=== PATIENT | male | born 1965 | race Caucasian/White ===

== ENCOUNTER 2021-03-09 10:47 | Outpatient (CLI) | payer BC ==
[~2021-03-09] VITALS: Ht 188 cm; Wt 108.2 kg
[2021-03-09 10:57] VITALS: BP 151/100
[2021-03-09] MEDS ORDERED: EPINEPHrine INJECTION 1 MG/ML AMP IM PRN (11:00)
[2021-03-09] MEDS ORDERED: diphenhydrAMINE 50 MG/ML INJ (BENADRYL) IV PRN (11:00)
[2021-03-09] MEDS ORDERED: CASIRIVIMAB/IMDEVIMAB 1,200 MG in NS (IVPB) 50 ML IV ONE (11:00)
[2021-03-09] MEDS ORDERED: ONDANSETRON 4 MG/2 ML (SDV) Z0FRAN IV PRN (11:00)
[2021-03-09] MEDS ORDERED: ACETAMINOPHEN 500 MG TAB (TYLENOL) PO PRN (11:00)
[2021-03-09 12:05] VITALS: BP 149/97
== END 2021-03-09 12:20 | disposition home or self-care (01) ==
LOC: INFUSION 10:47
PROVIDERS: ATTEND Physician Assistant
DX: U07.1 COVID-19 (principal)